=== PATIENT | female | born 1975 | race Caucasian/White ===

== ENCOUNTER 2019-03-03 14:27 | Emergency (ER) | payer OTHER, MEDICAID ==
[~2019-03-03] VITALS: Ht 167.6 cm; Wt 127.3 kg
[~2019-03-03 14:27] MED LIST: ALBU8.5H8 IH; HYDR25TA PO
[2019-03-03] MEDS ORDERED: KETOROLAC TROMETHAMINE 30 MG/ML VIAL IM ONE (16:45)
[2019-03-03] MEDS ORDERED: LIDOCAINE 5% TRANSDERMAL PATCH TD ONE (16:45)
[2019-03-03 18:30] VITALS: BP 136/83
[2019-03-03] MEDS ORDERED: HYDROCODONE/ACETAMINOPHEN 5-325 MG TABLET PO ONE (18:30)
== END 2019-03-03 19:20 | disposition home or self-care (01) ==
LOC: EMS 14:29
DX: S80.02XA Contusion of left knee, initial encounter (principal); R03.0 Elevated blood-pressure reading, without diagnosis of hypertension; M79.601 Pain in right arm; M79.651 Pain in right thigh; J45.909 Unspecified asthma, uncomplicated; F17.210 Nicotine dependence, cigarettes, uncomplicated; Z90.49 Acquired absence of other specified parts of digestive tract; Z90.710 Acquired absence of both cervix and uterus; Z88.2 Allergy status to sulfonamides; Z88.1 Allergy status to other antibiotic agents; Z91.013 Allergy to seafood; W01.0XXA Fall on same level from slipping, tripping and stumbling without subsequent striking against object, initial encounter; Y93.89 Activity, other specified; Y92.89 Other specified places as the place of occurrence of the external cause; Y99.8 Other external cause status
CPT/HCPCS: 29505; 73562; 96372; 99283; J1885; 29530

== ENCOUNTER 2019-08-23 | Emergency (ER) | payer MEDICAID, OTHER ==
[~2019-08-23] VITALS: Ht 167.6 cm; Wt 127.3 kg
[~2019-08-23] MED LIST changes: -HYDR25TA PO
[2019-08-23] MEDS ORDERED: AZITHROMYCIN 250 MG TABLET PO ONE (00:30)
[2019-08-23] MEDS ORDERED: PredniSONE 20 MG TABLET PO ONE (00:30)
[2019-08-23] MEDS ORDERED: ALBUTEROL SULFATE 2.5 MG/0.5 ML NEB SOLUTION NEB ONE (00:30)
[2019-08-23] MEDS ORDERED: IPRATROPIUM BROMIDE 0.5 MG/2.5 ML NEB SOLUTION NEB ONE (00:30)
[2019-08-23] MEDS ORDERED: 0.9% SODIUM CHLORIDE 5 ML NEB SOLUTION NEB ONE (00:44)
[2019-08-23 01:47] VITALS: BP 134/60
== END 2019-08-23 01:53 | disposition home or self-care (01) ==
LOC: EMS
DX: J20.9 Acute bronchitis, unspecified (principal); F17.210 Nicotine dependence, cigarettes, uncomplicated; Z88.2 Allergy status to sulfonamides; Z88.8 Allergy status to other drugs, medicaments and biological substances; Z79.899 Other long term (current) drug therapy
CPT/HCPCS: 71045; 94640; 99283; J7512